=== PATIENT | male | born 1990 | race Caucasian/White ===

== ENCOUNTER 2016-08-29 08:12 | Emergency (ER) | payer OTHER ==
[~2016-08-29] VITALS: Ht 172.7 cm; Wt 61.0 kg
--- NOTE | 2016-08-29 10:12 | ED PDOC ---
Post-Departure Follow-Up PT PRESENTS TO THE ED STATING HE WAS RUNNING IN PT THIS MORNING AND STEPPED IN A DIVOT IN THE GROUND AND ROLLED THE LEFT ANKLE, NOW HAVING PAIN WITH WEIGHT BEARING. PT ADMITS TO BEING NON-COMPLIANT WITH RECENT LEFT "TIB AND FEMUR FRACTURE", STATING HE BROKE THEM APPROXIMATELY 4 MONTHS AGO AND USED CRUTCHES FOR 4 DAYS AND THEN BEGAN TO REHAB WITH A PHYSICAL THERAPIST. PT STATES HE THEN BEGAN WALKING ON A TREADMILL AND JOGGING. STATES HE "ARGUED WITH THIS ADI FOR ABOUT 6 HOURS TO LET ME TAKE A PT TEST AND I PASSED SO HE LET ME GO." STATES IF HE WAS COMPLIANT, HE WOULD HAVE NEEDED TO STAY AT ANOTHER FACILITY FOR 3-4 MONTHS AND HE DID NOT WANT TO DO THAT SO HE WAS WALKING ON HIS FRACTURES, WITHOUT A SPLINT, WITHIN THE WEEK THAT THE FRACTURES OCCURRED. CLARIBEL CASH PA-C Aug 29, 2016 10:12
[2016-08-29 11:18] VITALS: BP 115/71
--- NOTE | 2016-08-29 11:41 | REP ---
REASON FOR EXAM: Leg pain. No recent trauma. FINDINGS: No acute fracture or destructive osseous lesion. Signed by Juan Luis Macario DO 08/29/2016 03:58 P
== END 2016-08-29 11:20 | disposition home or self-care (01) ==
LOC: M ED 09:29
DX: S93.402A Sprain of unspecified ligament of left ankle, initial encounter (principal); W18.42XA Slipping, tripping and stumbling without falling due to stepping into hole or opening, initial encounter; Y92.138 Other place on military base as the place of occurrence of the external cause; Y93.02 Activity, running; Y99.1 Military activity

== ENCOUNTER 2018-07-18 08:50 | Emergency (ER) | payer OTHER ==
[~2018-07-18] VITALS: Ht 170.2 cm; Wt 71.4 kg
[2018-07-18] MEDS ORDERED: NAPROXEN 250 MG TAB PO ONE (09:30)
--- NOTE | 2018-07-18 10:15 | REP ---
LEFT KNEE, FIVE VIEWS: There is no evidence of an acute fracture, dislocation or intrinsic bone disease. IMPRESSION: No fracture or dislocation. Electronically Signed by Edmond Luna MD 07/18/2018 03:38 P
[2018-07-18] MEDS ORDERED: NAPR-837 PO (10:23)
[2018-07-18 10:31] VITALS: BP 107/65
== END 2018-07-18 10:32 | disposition home or self-care (01) ==
LOC: M ED 08:50
DX: M25.562 Pain in left knee (principal)